=== PATIENT | female | born 1985 | race Caucasian/White ===

== ENCOUNTER 2017-11-11 08:40 | Day surgery (SDC) | payer MEDICAID ==
[~2017-11-11 08:40] MED LIST: Acetaminophen/HYDROcodone 325-5 MG Tab PO PRN; Lactated Ringers 1,000 ML IV SCH; Lidocaine 1% 20 ML MDV ONE; Lidocaine 2% 5 ML SDV ONE; Midazolam 1 MG/ML 2 ML SDV ONE; Ondansetron 4 MG/2 ML SDV ONE; Propofol 200 MG/20 ML SDV ONE; ceFAZolin 1 GM in Premix Bag 1 BAG IV SCH; fentaNYL 250 MCG/5 ML SDV ONE
--- NOTE | 2017-11-11 09:31 | PCM.PREANE ---
Preanesthetic Assessment - Procedure Proposed Procedure: right knee arthroscopy - Anesthesia/Transfusion/Family Hx Anesthesia History: Prior Anesthesia Without Reaction Family History of Anesthesia Reaction: No Transfusion History: No Prior Transfusion(s) Intubation History: Unknown Additional History: cholecystectomy in past without any problem with anesthetic care. - Review of Systems General: Other (R leg pain....cannot straighten her R leg) Pulmonary: Other (smoker) Cardiovascular: No Symptoms Gastrointestinal: Other (GERD - on daily meds) Neurological: Difficulty Walking Other: Reports: Depression, Anxiety - Physical Assessment NPO Status Date: 11/10/17 NPO Status Time: 12:00 O2 Sat by Pulse Oximetry: 95 Respiratory Rate: 16 Vital Signs: Last Vital Signs Temp Pulse 67 11/11/17 08:55 Resp 16 11/11/17 08:55 BP 129/83 11/11/17 08:55 Pulse Ox 95 11/11/17 08:55 Height: 5 ft 4 in Weight: 150 lb ASA Class: 2 Mental Status: Alert & Oriented x3 Airway Class: Mallampati = 2 Dentition: Reports: Normal Dentition Thyro-Mental Finger Breadths: 3 Mouth Opening Finger Breadths: 3 ROM/Head Extension: Full Lungs: Clear to Auscultation, Normal Respiratory Effort Cardiovascular: Regular Rate, Regular Rhythm, No Murmurs - Lab Values: Laboratory Last Values Urine HCG, Qual NEGATIVE (NEGATIVE) 11/11/17 08:50 - Allergies Allergies/Adverse Reactions: Allergies Allergy/AdvReac Type Severity Reaction Status Date / Time No Known Allergies Allergy Verified 11/06/17 11:13 - Blood Blood Available: No Product(s) Available: None - Anesthesia Plan Pre-Op Medication Ordered: None - Acknowledgements Anesthesia Type Planned: General Anesthesia (LMA vs OET) Pt an Appropriate Candidate for the Planned Anesthesia: Yes Alternatives and Risks of Anesthesia Discussed w Pt/Guardian: Yes Pt/Guardian Understands and Agrees with Anesthesia Plan: Yes PreAnesthesia Questionnaire HEENT History: Reports: Other (See Below) Other HEENT History: hx of cold sores Cardiovascular History: Reports: Other (See Below) Other Cardiovascular History: hx of rheumatic fever Respiratory History: Reports: None Gastrointestinal History: Reports: Other (See Below) Other Gastrointestinal History: occasional heartburn, takes OTC Nexium Genitourinary History: Reports: None 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 Musculoskeletal History: Reports: Fracture Other Musculoskeletal History: hx of fx femur as a child- was in traction and casted Neurological History: Reports: Other (See Below) Other Neuro History: hx of motion sickness Psychiatric History: Reports: Anxiety, Depression Endocrine/Metabolic History: Reports: None Hematologic History: Reports: None Immunologic History: Reports: None Oncologic (Cancer) History: Reports: None Dermatologic History: Reports: None - Past Surgical History Head Surgeries/Procedures: Reports: None HEENT Surgical History: Reports: Adenoidectomy, Tonsillectomy GI Surgical History: Reports: Cholecystectomy - SUBSTANCE USE Smoking Status *Q: Current Every Day Smoker Tobacco Use Within Last Twelve Months: Cigarettes Recreational Drug Use History: No - HOME MEDS Home Medications: Home Meds ClonazePAM [KlonoPIN] 0.5 mg PO BID PRN 11/06/17 [History] valACYclovir HCl [valACYclovir] 2 gm PO ASDIRECTED PRN 11/06/17 [History] - CURRENT (IN HOUSE) MEDS Current Meds: Current Medications Hydrocodone Bitart/Acetaminophen ([place] 325-5 Mg) 1 - 2 tab PO Q4H PRN PRN Reason: Pain Cefazolin Sodium/Dextrose 1 gm (/ Premix) 50 mls @ 100 mls/hr IV ONCALL IBAN Lactated Ringer's (Ringers, Lactated) 1,000 mls @ 100 mls/hr IV ASDIRECTED IBAN Last Admin: 11/11/17 08:55 Dose: 100 mls/hr Discontinued Medications Fentanyl (Sublimaze) Confirm Administered Dose 250 mcg .ROUTE .STK-MED ONE Stop: 11/11/17 07:15 Lidocaine (Xylocaine-Mpf 2%) Confirm Administered Dose 5 ml .ROUTE .STK-MED ONE Stop: 11/11/17 07:14 Lidocaine HCl (Xylocaine 1%) Confirm Administered Dose 20 ml .ROUTE .STK-MED ONE Stop: 11/11/17 07:47 Midazolam HCl (Versed 1 Mg/Ml) Confirm Administered Dose 2 mg .ROUTE .STK-MED ONE Stop: 11/11/17 07:14 Ondansetron HCl (Zofran) Confirm Administered Dose 4 mg .ROUTE .STK-MED ONE Stop: 11/11/17 07:14 Propofol (Diprivan 20 Ml) Confirm Administered Dose 200 mg .ROUTE .STK-MED ONE Stop: 11/11/17 07:14
[2017-11-11] MEDS ORDERED: Sodium Chloride 0.9% 20 ML ONE (10:01)
[2017-11-11] MEDS ORDERED: ceFAZolin 1 GM Vial ONE (10:01)
[2017-11-11] MEDS: fentaNYL 100 MCG/2 ML SDV IVPUSH PRN ×4 (11:12→11:39)
[2017-11-11] MEDS ORDERED: Promethazine 25 MG/ML SDV IM PRN (11:15)
--- NOTE | 2017-11-11 11:17 | PCM.OPNOTE ---
- General Post-Op/Procedure Note Date of Surgery/Procedure: 11/11/17 Operative Procedure(s): R knee arthroscopy, diagnostic Post-Op Diagnosis: R knee pain. MCL sprain Anesthesia Technique: General LMA Primary Surgeon: Maggie Monteiro Deicer Inspector Electric: Parveen Agosto in mLs: 5 Condition: Good Free Text/Narrative:: tt= see nursing notes Patient was properly identified and brought to the operating room. They were transferred from the OR cart and placed on operating table in supine position. General anesthesia was administered. After adequate anesthesia was obtained, well-padded tourniquet was applied to the lower extremity. The lower extremity was then prepped in standard fashion using ChloraPrep solution. It was then sterilely draped. A timeout was performed to ensure correct site and procedure. Preoperative antibiotics were given. The surgical site had been marked preoperatively. An Esmarch was used to exsanguinate the lower extremity and the tourniquet was inflated to 250 mmHg. A lateral portal arthrotomy was established. Blunt trocar and cannula were introduced into the suprapatellar space. Camera, inflow, and outflow were assembled. Findings: Supra-patellar pouch: No significant synovitis. Patellofemoral joint: No significant degenerative changes. The patella appeared to track centrally. Lateral and medial gutter: No loose bodies were identified. Medial compartment: A medial portal arthrotomy was established. A blunt probe was inserted. The medial meniscus was extensively probed. No tearing or instability was noted The joint surfaces showed no significant degenerative findings. Notch: Both the ACL and PCL were visualized and probed and found to be intact. Lateral compartment: The lateral meniscus was probed and found to be stable. Minor degenerative changes were noted along the central portion of the meniscus. Grade 1 chondromalacia was noted along the lateral tibial plateau. A nondisplaced full thickness fissure was noted along the lateral aspect of the lateral tibial plateau. Instruments were then removed from the knee. The portal sites were closed with 3 -0 nylon. 1% lidocaine was injected along the portal tracts. Xeroform gauze was placed over the wound and a bulky dressing was applied. Tourniquet was then deflated. Patient was awakened from the anesthetic and transferred back to the operative cart. Patient was brought to recovery room in stable condition. All needle and sponge counts were correct.
--- NOTE | 2017-11-11 11:29 | PCM.POSTAN ---
POST ANESTHESIA ASSESSMENT - MENTAL STATUS Mental Status: Alert, Oriented - RESPIRATORY Respiratory Status: Respiratory Rate WNL, Airway Patent, O2 Saturation Stable - CARDIOVASCULAR CV Status: Pulse Rate WNL, Blood Pressure Stable - GASTROINTESTINAL GI Status: No Symptoms, [place] Free Text/Narrative:: Treated with phenergan - PAIN Pain Score: 5 (fentanyl given) - POST OP HYDRATION Hydration Status: Adequate & Stable
--- NOTE | 2017-11-11 12:45 | PCM48HPAN ---
Post Anesthesia Note - EVALUATION WITHIN 48HRS OF ANESTHETIC Vital Signs in Normal Range: Yes Patient Participated in Evaluation: Yes Respiratory Function Stable: Yes Airway Patent: Yes Cardiovascular Function Stable: Yes Hydration Status Stable: Yes Pain Control Satisfactory: Yes Nausea and Vomiting Control Satisfactory: Yes Mental Status Recovered: Yes Resp Rate: 14
== END 2017-11-11 14:38 | disposition home or self-care (01) ==
LOC: MW.SDS 08:40
PROVIDERS: ATTEND Orthopaedic Surgery
DX: S83.411A Sprain of medial collateral ligament of right knee, initial encounter (principal); S83.511A Sprain of anterior cruciate ligament of right knee, initial encounter; M94.261 Chondromalacia, right knee; J45.909 Unspecified asthma, uncomplicated; F41.9 Anxiety disorder, unspecified; F32.9 Major depressive disorder, single episode, unspecified; F17.210 Nicotine dependence, cigarettes, uncomplicated
CPT/HCPCS: 29870; 81025; A9270; J0690; J2250; J2405; J2550; J2704; J3010; J7120; 88304

== ENCOUNTER 2018-09-16 15:15 | Emergency (ER) | payer SELFPAY ==
[2018-09-16] MEDS ORDERED: Ketorolac 60 MG/2 ML SDV IM ONE (15:38)
[2018-09-16] MEDS ORDERED: methylPREDNISolone Sodium Succinate 125 MG/2 ML SDV IM ONE (16:15)
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
--- NOTE | 2018-09-16 16:52 | CT ---
TECHNIQUE: Noncontrast CT lumbar spine. INDICATION: Low back pain, numbness in right foot and leg. FINDINGS: Five lumbar vertebral bodies. Mild left convex lumbar curve which is likely positional. There is a central disc protrusion/extrusion at L4-5 that causes significant narrowing of the spinal canal at this level. There is also right greater than left subarticular recess narrowing that appears to impact at least the exiting right L5 nerve root. Neural foramina are patent. The remainder of the lumbar spinal levels are normal. IMPRESSION: L4-5 disc protrusion causing marked canal narrowed and right greater than left subarticular recess narrowing. This would correlate with the patient`s symptoms. Please note that all CT scans at this facility use dose modulation, iterative reconstruction, and/or weight-based dosing when appropriate to reduce radiation dose to as low as reasonably achievable. Dictated by Oscar Jorge MD @ Sep 16 2018 4:45PM (Electronically Signed)
== END 2018-09-16 17:25 | disposition home or self-care (01) ==
LOC: MW.ED 15:15
DX: M51.16 Intervertebral disc disorders with radiculopathy, lumbar region (principal); F17.210 Nicotine dependence, cigarettes, uncomplicated; F41.9 Anxiety disorder, unspecified; F32.9 Major depressive disorder, single episode, unspecified; Z79.899 Other long term (current) drug therapy
CPT/HCPCS: 72131; 96372; 99283; J1885; J2360; J2930

== ENCOUNTER 2022-01-06 13:22 | Emergency (ER) | payer MEDICAID ==
[2022-01-06] MEDS ORDERED: Sodium Chloride 0.9% 1,000 ML IV ONE (15:33)
[2022-01-06] MEDS ORDERED: Ketorolac 30 MG/ML SDV IVPUSH ONE (15:33)
[2022-01-06] MEDS ORDERED: diphenhydrAMINE 50 MG/ML SDV IVPUSH ONE (15:34)
[2022-01-06] MEDS ORDERED: Ondansetron 4 MG/2 ML SDV IVPUSH ONE (15:34)
[2022-01-06] MEDS ORDERED: Metoclopramide 10 MG/2 ML SDV IV ONE (15:34)
[2022-01-06 16:28] LABS: POTASSIUM,K 3.8 mmol/L (3.5-5.1)
== END 2022-01-06 16:58 | disposition home or self-care (01) ==
LOC: MW.ED 13:22
DX: R51.9 Headache, unspecified (principal); I10 Essential (primary) hypertension; Z79.899 Other long term (current) drug therapy
CPT/HCPCS: 36415; 80053; 85025; 96361; 96374; 96375; 99284; J1200; J1885; J2405; J2765; J7030